=== PATIENT | female | born 1950 | race Caucasian/White ===

== ENCOUNTER → 2023-11-09 14:48 | Outpatient (CLI) | payer MEDICARE, OTHER, SELFPAY | PROVIDERS: PCP Nurse Practitioner; Visit Provider Nurse Practitioner | DX: N39.0 Urinary tract infection, site not specified (principal); N89.8 Other specified noninflammatory disorders of vagina | CPT/HCPCS: 87070; 87086; 87205 ==

== ENCOUNTER → 2024-04-06 13:59 | Outpatient (CLI) | payer MEDICARE, OTHER, SELFPAY | PROVIDERS: PCP Nurse Practitioner; Visit Provider Nurse Practitioner | DX: N89.8 Other specified noninflammatory disorders of vagina (principal) | CPT/HCPCS: 87070; 87205 ==

== ENCOUNTER → 2025-10-03 09:44 | Outpatient (CLI) | payer MEDICARE, OTHER, SELFPAY ==
[2025-10-03 10:31] LABS: Alanine Aminotransferase 33 IU/L (<35); Albumin 4.5 g/dL (3.5-5.0); Albumin Globulin Ratio 1.6 (1.0-2.8); Alkaline Phosphatase 65 U/L (38-126); Cholesterol 232 mg/dL (140-199); Creatine Kinase 54 U/L (30-135); Globulin 2.9 g/dL (1.7-4.1); HDL Cholesterol 83 mg/dL (40-60); HEMOLYSIS < 15 (0-50); Total Protein 7.4 g/dL (6.3-8.2); Triglycerides 70 mg/dL (35-150)
[2025-10-03 10:33] LABS: HEMOLYSIS < 15 (0-50); Iron 73 ug/dL (37-170)
[2025-10-03 10:44] LABS: Percent Iron Saturation 22 % (15-50); Total Iron Binding Capacity 335 ug/dL (265-497); Transferrin 288 mg/dL (206-381)
[2025-10-03 11:04] LABS: TSH w/ Reflex to FT4 1.29 uIU/mL (0.47-4.68)
[2025-10-03 15:41] LABS: Hepatitis B Surface Antigen NEGATIVE s/c (NEGATIVE)
== END ==
PROVIDERS: PCP Family Medicine; Referring Provider Family Medicine; Visit Provider Family Medicine
DX: R79.89 Other specified abnormal findings of blood chemistry (principal); I10 Essential (primary) hypertension; E78.2 Mixed hyperlipidemia
CPT/HCPCS: 36415; 80061; 80076; 82390; 82550; 83540; 83550; 84443; 86706; 87340